=== PATIENT | male | born 1980 | race Caucasian/White ===

== ENCOUNTER 2022-10-20 23:18 | Inpatient (IN) | payer SELFPAY ==
[2022-10-20] MEDS ORDERED: FENTANYL CITR 100 MCG/2 ML ONE (23:38)
[2022-10-20] MEDS ORDERED: ONDANSETRON 4 MG/2 ML VIAL ONE (23:38)
[2022-10-20] MEDS ORDERED: CEFAZOLIN SODIUM 1 GM/VIAL ONE (23:38)
[2022-10-20] MEDS ORDERED: NA CHLORIDE 0.9% 1,000 ML ONE ×2 (23:39)
[2022-10-20] MEDS ORDERED: TETANUS & DIPHTHERIA TOX,ADULT 0.5 ML VIAL ONE (23:39)
[2022-10-20] MEDS ORDERED: NA CHLORIDE 0.9% 100 ML ONE (23:39)
[2022-10-21 00:20] LABS: Absolute Lymphocytes (CBC) 2.3 K/uL (0.7-4.9); Hematocrit 41.4 % (39.6-49.0); Lymphocytes % 12.6 % (15.3-44.8); MCV 89.4 fL (80-100); MPV 8.6 fL (7.6-11.3); RBC Red Blood Cell Count 4.63 M/uL (4.33-5.43)
[2022-10-21 00:21] LABS: Protime INR 1.12
[2022-10-21 00:26] LABS: Potassium 3.3 mEq/L (3.5-5.1)
[2022-10-21] MEDS ORDERED: MORPHINE 4 MG/ML SYR ONE ×2 (00:43→02:43)
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
[2022-10-21] MEDS ORDERED: PROMETHAZINE INJ 25 MG/ML AMP ONE (01:23)
[2022-10-21] MEDS ORDERED: ONDANSETRON 4 MG/2 ML VIAL IV PRN (02:16)
[2022-10-21 03:14] VITALS: BMI 27.3
[2022-10-21] MEDS: D5.45NS W/KCL 20MEQ 1,000 ML IV SCH ×3 (03:49→22:16)
[2022-10-21] MEDS: CEFAZOLIN 1 GM in NA CHLORIDE 0.9% 50 ML IVPB SCH ×3 (07:02→18:00)
[2022-10-21] MEDS: MORPHINE 4 MG/ML SYR IV PRN ×3 (07:05→21:25)
[2022-10-21] MEDS ORDERED: Ringers Lactate 1,000 ML IV ONE (07:43)
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
[2022-10-21] MEDS ORDERED: SUCCINYLCHOLINE 20 MG/ML (10 ML) IV ONE (08:08)
[2022-10-21] MEDS ORDERED: propofoL 200 MG/20 ML VIAL IV ONE (08:11)
[2022-10-21] MEDS ORDERED: MIDAZOLAM HCL 2 MG/2 ML INJ ONE (08:12)
[2022-10-21] MEDS ORDERED: FENTANYL CITR 100 MCG/2 ML ONE (08:12)
[2022-10-21] MEDS ORDERED: KETOROLAC 30 MG/ML INJ ONE (08:58)
[2022-10-21] MEDS: MEPERIDINE HCL 25 MG/ML SYR ONE ×2 (09:12→09:20)
--- NOTE | 2022-10-21 09:14 | P.OP ---
Preoperative diagnosis: Extensive laceration of the right lower leg Postoperative diagnosis: The same Primary procedure: Exploration of laceration of the right lower leg Secondary procedure: Fasciotomy Other procedure(s): Post lavage and debridement Anesthesia: General Estimated blood loss: Less than 10 cc Operative Technique: The patient brought the operating room and placed supine on the table. After the induction of adequate general endotracheal anesthesia, the area of the right leg was scrubbed and painted with a chlorhexidine solution, draped in usual aseptic manner. Attention was turned towards his open wound on the right leg. The skin is split on the medial portion from just below 3 fingers below the knee joint itself to about 4 fingers above the ankle. The muscles is all viable when pinched it was easy to contract however the can see that it is "under mild amount of pressure on this medial aspect. We came down to the fascia and opened the fascia for the full length to decompress the compartment. The leg was then internally rotated and a incision was made on the other side. We were able to come down identify the fascia a small cut was made Finger was placed inside on the other compartment there does not appear to be any pressure and a full fasciotomy was not done at this time attention was turned back towards her open wound we carefully inspected it to coagulate any of the bleeding vessels that were very few the tissue looks clean and relatively viable it was washed out with the pulse lavage under low pressure we did not add any effluent to the normal saline. The skin edges appear to be viable. The wound at the end of the procedure was packed open with a moist soaked gauze. I do not feel we can approximate the tissue at this time due to pressure. We will keep the wound elevated and bring him back in approximately 48 hours. At this time we will be able to begin to close the wound. It may be that he be necessary for him to use a wound VAC, and at a later date to have a split- thickness skin graft.
[2022-10-21] MEDS: HYDROCODONE/APAP 7.5/325 MG TAB PO PRN ×2 (13:30→19:48)
[2022-10-21] MEDS: ENOXAPARIN 30 MG/0.3 ML SQ SCH (17:00)
[2022-10-22] MEDS: D5.45NS W/KCL 20MEQ 1,000 ML IV SCH ×3 (00:27→18:32)
[2022-10-22] MEDS: CEFAZOLIN 1 GM in NA CHLORIDE 0.9% 50 ML IVPB SCH ×4 (00:27→18:33)
[2022-10-22] MEDS: MORPHINE 4 MG/ML SYR IV PRN ×6 (01:16→22:12)
[2022-10-22 03:21] LABS: Absolute Lymphocytes (CBC) 2.1 K/uL (0.7-4.9); Hematocrit 38.7 % (39.6-49.0); Lymphocytes % 21.1 % (15.3-44.8); MCV 89.4 fL (80-100); MPV 9.3 fL (7.6-11.3); RBC Red Blood Cell Count 4.33 M/uL (4.33-5.43)
[2022-10-22 03:40] LABS: Potassium 4.1 mEq/L (3.5-5.1)
[2022-10-22] MEDS: HYDROCODONE/APAP 7.5/325 MG TAB PO PRN ×4 (06:04→23:09)
[2022-10-22] MEDS: ENOXAPARIN 30 MG/0.3 ML SQ SCH (08:50)
[2022-10-23] MEDS: CEFAZOLIN 1 GM in NA CHLORIDE 0.9% 50 ML IVPB SCH ×4 (00:08→17:45)
[2022-10-23] MEDS: MORPHINE 4 MG/ML SYR IV PRN ×4 (03:13→21:12)
[2022-10-23] MEDS: D5.45NS W/KCL 20MEQ 1,000 ML IV SCH ×3 (05:45→23:42)
[2022-10-23] MEDS: HYDROCODONE/APAP 7.5/325 MG TAB PO PRN ×3 (05:47→23:43)
[2022-10-23] MEDS: ENOXAPARIN 30 MG/0.3 ML SQ SCH (08:18)
[2022-10-23] MEDS ORDERED: Ringers Lactate 1,000 ML IV ONE (11:45)
[2022-10-23] MEDS ORDERED: propofoL 200 MG/20 ML VIAL IV ONE ×2 (11:55→12:24)
[2022-10-23] MEDS ORDERED: FENTANYL CITR 100 MCG/2 ML ONE ×2 (11:55→12:55)
[2022-10-23] MEDS ORDERED: LIDOCAINE 2% MPF 5 ML VIAL ONE (11:57)
[2022-10-23] MEDS ORDERED: KETOROLAC 30 MG/ML INJ ONE (11:57)
[2022-10-23] MEDS ORDERED: ONDANSETRON 4 MG/2 ML VIAL ONE (11:57)
[2022-10-23] MEDS ORDERED: MIDAZOLAM HCL 2 MG/2 ML INJ ONE (11:59)
[2022-10-23] MEDS ORDERED: dexAMETHasone 4 MG/ML VIAL ONE (12:02)
[2022-10-23] MEDS ORDERED: SUGAMMADEX SODIUM 200 MG/2 ML VIAL IV ONE (12:02)
--- NOTE | 2022-10-23 13:21 | P.OP ---
Primary procedure: Exploration of laceration of the right lower leg Secondary procedure: Mobilization of posterior skin flap Other procedure(s): Application of wound VAC Estimated blood loss: Less than 10 cc Operative Technique: T the patient was brought the operating room placed supine on the table. After induction of adequate general anesthesia, the area of the right lower leg was prepped with a Betadine solution, and draped in the usual aseptic manner. Attention was turned towards the tissue of the right lower leg. There is quite a lot of edema still in the muscles of the right leg. We checked gently with electrical stim stimulation to ensure he had contractility of all the muscles that we do. There is no evidence of any compartment syndrome there is good circulation to the tissues. The wound still has a separation of approximately 10 cm from edge of the edge at its widest point. The length of this wound is approximately 1 foot in length. We put a staple line along the edges to use as I is to place the wound closed over the next few weeks. I think there is a skin deficit that is going to remain despite our attempts to approximate the skin. I feel he will need a skin graft in the future. In order to start preparing the bed, we placed a wound VAC into our wound. We will change this out over the course of the next couple of days. And then at some point hopefully get the patient back for a definitive split-thickness skin graft to close the wound. At the end of the procedure the patient was in a stable condition. A wound VAC had been applied. Complications: None Drain(s): Other (Wound VAC to right lower leg) Transferred to: Recovery Room Condition: Good
[2022-10-23] MEDS: HYDROMORPHONE HCL 1 MG/ML INJ ONE ×4 (13:43→13:59)
[2022-10-24] MEDS: CEFAZOLIN 1 GM in NA CHLORIDE 0.9% 50 ML IVPB SCH ×5 (00:33→23:56)
[2022-10-24] MEDS: MORPHINE 4 MG/ML SYR IV PRN ×4 (02:52→21:05)
[2022-10-24] MEDS: ENOXAPARIN 30 MG/0.3 ML SQ SCH (07:22)
[2022-10-24] MEDS: HYDROCODONE/APAP 7.5/325 MG TAB PO PRN ×2 (09:10→23:52)
[2022-10-24] MEDS ORDERED: DIAZEPAM 5 MG TABLET PO ONE (09:33)
[2022-10-24] MEDS: D5.45NS W/KCL 20MEQ 1,000 ML IV SCH ×2 (11:00→21:55)
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
[2022-10-25] MEDS: D5.45NS W/KCL 20MEQ 1,000 ML IV SCH ×2 (06:16→16:16)
[2022-10-25] MEDS: MORPHINE 4 MG/ML SYR IV PRN ×3 (06:19→21:07)
[2022-10-25] MEDS: CEFAZOLIN 1 GM in NA CHLORIDE 0.9% 50 ML IVPB SCH ×2 (06:20→12:00)
[2022-10-25] MEDS: HYDROCODONE/APAP 7.5/325 MG TAB PO PRN ×2 (07:44→22:28)
[2022-10-25] MEDS: ENOXAPARIN 30 MG/0.3 ML SQ SCH (09:00)
[2022-10-25] MEDS ORDERED: MINERAL OIL, LITE 10 ML VIAL ONE (12:48)
[2022-10-25] MEDS ORDERED: propofoL 200 MG/20 ML VIAL IV ONE (13:13)
[2022-10-25] MEDS ORDERED: ONDANSETRON 4 MG/2 ML VIAL ONE (13:13)
[2022-10-25] MEDS ORDERED: dexAMETHasone 4 MG/ML VIAL ONE (13:13)
[2022-10-25] MEDS ORDERED: MIDAZOLAM HCL 2 MG/2 ML INJ ONE (13:13)
[2022-10-25] MEDS ORDERED: LIDOCAINE 2% MPF 5 ML VIAL ONE ×2 (13:13→15:07)
[2022-10-25] MEDS ORDERED: FENTANYL CITR 100 MCG/2 ML ONE (13:13)
[2022-10-25] MEDS ORDERED: HYDROMORPHONE HCL 2 MG/ML inj ONE (13:17)
[2022-10-25] MEDS: CEFAZOLIN SODIUM 1 GM/VIAL ONE ×2 (13:25→14:12)
[2022-10-25] MEDS ORDERED: Ringers Lactate 1,000 ML IV ONE ×2 (13:32→15:09)
[2022-10-25] MEDS ORDERED: KETAMINE HCL IN 0.9 % NACL 50 MG/5 ML SYRINGE IV ONE (13:58)
[2022-10-25] MEDS: LIDOCAINE 1% MPF 30 ML VIAL ONE ×3 (14:00→15:00)
[2022-10-25] MEDS ORDERED: KETOROLAC 30 MG/ML INJ ONE (14:52)
[2022-10-25] MEDS ORDERED: LIDOCAINE 1% MPF 30 ML VIAL ONE (15:08)
[2022-10-25 15:49] VITALS: O2SAT 100
[2022-10-26] MEDS: D5.45NS W/KCL 20MEQ 1,000 ML IV SCH ×3 (00:05→12:28)
[2022-10-26] MEDS: MORPHINE 4 MG/ML SYR IV PRN ×3 (00:45→09:20)
[2022-10-26] MEDS: HYDROCODONE/APAP 7.5/325 MG TAB PO PRN ×2 (04:04→11:20)
[2022-10-26 05:42] VITALS: TEMP 97.9
[2022-10-26] MEDS: ENOXAPARIN 30 MG/0.3 ML SQ SCH (08:27)
[2022-10-26 08:55] VITALS: BP 133/82
== END 2022-10-26 15:31 | disposition home or self-care (01) | DRG 581 ==
LOC: ER 23:18 → 2ND 10-21 01:54 → OBSVTOIN 10-21 16:51
PROVIDERS: ADMIT Surgery; ATTEND Surgery
PROC: 0KNS0ZZ Release Right Lower Leg Muscle, Open Approach (ICD-10-PCS; 2022-10-21)
PROC: 0JDN0ZZ Extraction of Right Lower Leg Subcutaneous Tissue and Fascia, Open Approach (ICD-10-PCS; principal; 2022-10-21 08:00)
PROC: 0JQN0ZZ Repair Right Lower Leg Subcutaneous Tissue and Fascia, Open Approach (ICD-10-PCS; 2022-10-23)
DX: S81.811A Laceration without foreign body, right lower leg, initial encounter (principal)
CPT/HCPCS: 36415; 80048; 85025; 85610; 85730; 90471; 90714; 94010; 99285; G0378; G0480; J0690; J1100; J1170; J1650; J2001; J2175; J2250; J2405; J2550; J2704; J3010; J7030; J7040; J7120